=== PATIENT | male | born 1975 | race Caucasian/White ===

== ENCOUNTER 2019-05-06 11:43 | Emergency (ER) | payer OTHER ==
[~2019-05-06] VITALS: Ht 160 cm; Wt 78.0 kg
[2019-05-06 11:48] VITALS: BP 143/91; PULSE 18; RESP 18; Ht 160 cm; Wt 78.0 kg
[2019-05-06] MEDS ORDERED: HYDR25SU23 PR (12:38)
--- NOTE | 2019-05-06 12:41 | ERD ---
ER Documentation Chief Complaint Chief Complaint has hemorrhoids , has rectal pain HPI 44-year-old male who presents to the emergency room with proximal he 1 week of perianal and rectal pain and possible external hemorrhoid. He denies any bleeding, no fevers or chills, no trauma. Pain is moderate and throbbing and worse with sitting. ROS All systems reviewed and are negative except as per history of present illness. Medications Home Meds Active Scripts Hydrocortisone Acetate (Anusol-Hc) 25 Mg Supp.rect, 1 SUPP [place] BID PRN for HEMORROID PAIN/ITCHING for 14 Days, SUPP.RECT Prov:ADY COBOS MD 05/06/19 FmHx Family History: No diabetes Physical Exam Vitals Vital Signs Date Temp Pulse Resp B/P (MAP) Pulse Ox O2 O2 Flow FiO2 Time Delivery Rate 05/06/19 98.1 18 18 143/91 99 11:48 (108) Physical Exam General: Well developed, well nourished, no acute distress Head: Normocephalic, atraumatic. Eyes: EOM intact ENT: Moist mucous membranes Neck: Full ROM Respiratory: No respiratory distress Cardiovascular: Well perfused distally Abdominal: Nondistended : External perianal and rectal examination reveals a large external hemorrhoid at the 3 o'clock position, no thrombosis, no stigmata of active bleeding MSK: No edema, no unilateral swelling, 5/5 strength Neurologic: Alert and oriented, moving all extremities, normal speech, steady gait Skin: No rash Psych: Normal mood Procedures/MDM Clinical exam very consistent with uncomplicated external hemorrhoid. No evidence of acute thrombosis or active bleeding. No evidence of abscess. The patient will benefit from Anusol, outpatient general surgery or colorectal surgery follow-up for possible banding. No indication for laboratory testing or diagnostic imaging. The patient does not have an identifiable emergent medical condition that warrants inpatient hospitalization at this time. The patient is deemed safe for discharge with outpatient follow-up. We discussed follow up with the patient's primary care doctor within 24 to 48 hours as needed. We also discussed return to the emergency room for worsening symptoms or worsening condition. Outpatient referral: General surgery Discharge Medications: Anusol Departure Diagnosis: Primary Impression: External hemorrhoid Condition: Good Patient Instructions: Hemorrhoids Referrals: THIERRY PERES MD [facility] YOU HAVE RECEIVED A MEDICAL SCREENING EXAM AND THE RESULTS INDICATE THAT YOU DO NOT HAVE A CONDITION THAT REQUIRES URGENT TREATMENT IN THE EMERGENCY DEPARTMENT. FURTHER EVALUATION AND TREATMENT OF YOUR CONDITION CAN WAIT UNTIL YOU ARE SEEN IN YOUR DOCTORS OFFICE WITHIN THE NEXT 1-2 DAYS. IT IS YOUR RESPONSIBILITY TO MAKE AN APPOINTMENT FOR FOLOW-UP CARE. IF YOU HAVE A PRIMARY DOCTOR --you should call your primary doctor and schedule an appointment IF YOU DO NOT HAVE A PRIMARY DOCTOR YOU CAN CALL OUR PHYSICIAN REFERRAL HOTLINE AT IF YOU CAN NOT AFFORD TO SEE A PHYSICIAN YOU CAN CHOSE FROM THE FOLLOWING [facility] [address] [facility] [address] [facility] [address] [facility] [address] [facility] [address] [facility] [address] [facility] YOU HAVE RECEIVED A MEDICAL SCREENING EXAM AND THE RESULTS INDICATE THAT YOU DO NOT HAVE A CONDITION THAT REQUIRES URGENT TREATMENT IN THE EMERGENCY DEPARTMENT. FURTHER EVALUATION AND TREATMENT OF YOUR CONDITION CAN WAIT UNTIL YOU ARE SEEN IN YOUR DOCTORS OFFICE WITHIN THE NEXT 1-2 DAYS. IT IS YOUR RESPONSIBILITY TO MAKE AN APPOINTMENT FOR FOLOW-UP CARE. IF YOU HAVE A PRIMARY DOCTOR --you should call your primary doctor and schedule and appointment IF YOU DO NOT HAVE A PRIMARY DOCTOR YOU CAN CALL OUR PHYSICIAN REFERRAL HOTLINE AT . IF YOU CAN NOT AFFORD TO SEE A PHYSICIAN YOU CAN CHOSE FROM THE FOLLOWING [facility]: [facility] [address] [place] [address] [facility] [address] [place] [address] [facility] [address] [place] [address] Additional Instructions: Call your primary care doctor TOMORROW for an appointment during the next 1 WEEK.Tell the administrative secretary that you were referred from this facility.See the doctor sooner or return here if your condition worsens before your appointment time. ADY COBOS MD May 06, 2019 12:41
== END 2019-05-06 12:51 | disposition home or self-care (01) ==
LOC: E/R 11:43
DX: K64.4 Residual hemorrhoidal skin tags (principal)
CPT/HCPCS: 99284

== ENCOUNTER 2019-05-08 15:13 | Emergency (ER) | payer OTHER ==
[~2019-05-08] VITALS: Ht 165.1 cm; Wt 62.2 kg
[~2019-05-08 15:13] MED LIST: HYDR25SU23 PR
[2019-05-08 15:15] VITALS: BP 117/86; PULSE 83; RESP 18; Ht 165.1 cm; Wt 62.2 kg
[2019-05-08] MEDS ORDERED: ONDANSETRON (ODT) 4 MG TAB ODT STA (15:50)
[2019-05-08] MEDS ORDERED: HYDROmorphONE 0.5 MG/0.5 ML SYG IM STA (15:50)
[2019-05-08] MEDS ORDERED: SULF1TAB31 PO (16:37)
[2019-05-08] MEDS ORDERED: DOCU-144 PO (16:37)
[2019-05-08] MEDS ORDERED: HYDR-4011 PO (16:37)
[2019-05-08] MEDS ORDERED: CEPH-443 PO (16:37)
--- NOTE | 2019-05-08 16:45 | ERD ---
ER Documentation Chief Complaint Chief Complaint rectal pain for a few days, seen here 05/06 for same - no improvement HPI 44-year-old male presents with rectal pain for the last week. He was seen here 2 days ago and diagnosed with external hemorrhoids. He was treated with Anusol, stool softeners and recommendations for general surgery evaluation. Patient has worsening pain and feels like passing out due to the pain. Denies any bleeding or discharge. Denies any fevers, vomiting, abdominal pain. Denies any history of constipation or inciting events. ROS All systems reviewed and are negative except as per history of present illness. Medications Home Meds Active Scripts Cephalexin* (Keflex*) 500 Mg Capsule, 500 MG PO QID for 7 Days, CAP Prov:MOHAMUD CUNHA MD 05/08/19 Sulfamethoxazole/Trimethoprim* (Bactrim Ds* Tablet) 1 Each Tablet, 1 TAB PO BID for 7 Days, #14 TAB Prov:MOHAMUD CUNHA MD 05/08/19 Docusate Sodium* (Colace*) 100 Mg Capsule, 100 MG PO BID for 15 Days, #30 CAP Prov:MOHAMUD CUNHA MD 05/08/19 Hydrocodone/Acetaminophen ([place]ford 5-325 Tablet) 1 Each Tablet, 1 EACH PO QID, #7 TAB Prov:MOHAMUD CUNHA MD 05/08/19 Hydrocortisone Acetate (Anusol-Hc) 25 Mg Supp.rect, 1 SUPP [place] BID PRN for HEMORROID PAIN/ITCHING for 14 Days, SUPP.RECT Prov:ADY COBOS MD 05/06/19 Allergies Allergies: Coded Allergies: No Known Allergy (Unverified , 05/08/19) PMhx/Soc Medical and Surgical Hx: pt denies Medical Hx, pt denies Surgical Hx Hx Alcohol Use: No Hx Substance Use: No Hx Tobacco Use: No Smoking Status: Never smoker FmHx Family History: No diabetes, No coronary disease, No other Physical Exam Vitals Vital Signs Date Temp Pulse Resp B/P (MAP) Pulse Ox O2 O2 Flow FiO2 Time Delivery Rate 05/08/19 98.7 83 18 117/86 98 15:15 (96) Physical Exam Const: No acute distress Head: Atraumatic Eyes: Normal Conjunctiva ENT: Normal External Ears, Nose and Mouth. Neck: Full range of motion. No meningismus. Resp: Clear to auscultation bilaterally Cardio: Regular rate and rhythm, no murmurs Abd: Soft, non tender, non distended. Normal bowel sounds. Rectal exam shows approximately 2 cm area of fluctuance and redness at the anal verge consistent with a perianal abscess. No active discharge. Skin: No petechiae or rashes Back: No midline or flank tenderness Ext: No cyanosis, or edema Neur: Awake and alert Psych: Normal Mood and Affect Results 24 hrs Current Medications Medications Dose Sig/Vicente Start Time Status Last (Trade) Ordered Route PRN Stop Time Admin Dose Reason Admin 1 mg ONCE STAT 05/08/19 DC 05/08/19 Hydromorphone IM 15:50 05/08/19 16:03 HCl 15:51 (Dilaudid) Ondansetron 8 mg ONCE STAT 05/08/19 DC 05/08/19 HCl (Zofran ODT 15:50 05/08/19 16:01 Odt) 15:51 1 tab ONCE ONCE 05/08/19 05/08/19 Trimethoprim/ PO 17:00 05/08/19 16:42 17:01 Sulfamethoxaz ole (Bactrim (Ds)) Cephalexin 500 mg ONCE ONCE 05/08/19 05/08/19 (Keflex) PO 17:00 05/08/19 16:42 17:01 Procedures/[facility] Procedure note-patient was given Dilaudid 1 mg IM for pain as well as Zofran. 2 cc of lidocaine was used for local infiltration of the area of fluctuance. Using a #11 scalpel and via blunt dissection significant amount of pus was expressed. Wound was not packed as it was actively draining and open. Wound was dressed and patient tolerated procedure well. Patient presents with signs and symptoms of a perianal abscess successfully incised and drained here today. He was given Bactrim and Keflex and will be treated with a short course of [place] for acute pain, Bactrim, Keflex, recommend addition for warm soaks and continue primary care and general surgery evaluation for persistent recurrent symptoms. He is advised to return for worsening redness, fevers, vomiting, new worsening symptoms. Departure Diagnosis: Primary Impression: Perianal abscess Condition: Stable Patient Instructions: Solange-Anal Abscess, I And D Additional Instructions: Recommend warm soaks at home. Recheck for worsening redness, fevers, new worsening symptoms. See primary doctor and general surgery for further evaluation treatment for persistent recurrent abscesses. MOHAMUD CUNHA MD May 08, 2019 16:45
[2019-05-08] MEDS ORDERED: CEPHALEXIN 500 MG CAP PO ONE (17:00)
[2019-05-08] MEDS ORDERED: TRIMETHOPRIM/SULFAMETHOX (DS) TAB PO ONE (17:00)
== END 2019-05-08 16:52 | disposition home or self-care (01) ==
LOC: FTE 15:13
DX: K61.0 Anal abscess (principal)
CPT/HCPCS: 46050; 96372; J1170; Z7502; Z7610